=== PATIENT | male | born 1965 | race Two or more races ===

== ENCOUNTER 2016-05-05 13:23 | Emergency (ER) | payer OTHER ==
[2016-05-05 13:29] VITALS: BP 153/98; PULSE 74; RESP 16; TEMP 98.8; O2SAT 97
== END 2016-05-05 15:00 | disposition left against medical advice (07) ==
LOC: CED 13:23
DX: M25.512 Pain in left shoulder (principal); R20.0 Anesthesia of skin; Z53.9 Procedure and treatment not carried out, unspecified reason